=== PATIENT | female | born 1940 | race Caucasian/White ===

== ENCOUNTER 2024-12-09 17:08 | Inpatient (IN) ==
[2024-12-09] MEDS: morphine 2 MG/ML VIAL IV ONE (18:33)
[2024-12-09 19:14] LABS: Basophils # (Auto) 0.01 K/mcL (0.00-0.30); Basophils % (Auto) 0.1 % (0.0-2.0); Eosinophils # (Auto) 0.06 K/mcL (0.00-0.70); Eosinophils % (Auto) 0.8 % (0.0-7.0); Hematocrit 35.4 % (34.1-44.9); Hemoglobin 11.8 g/dL (11.2-15.7); Lymphocytes # (Auto) 1.02 K/mcL (1.50-4.80); Lymphocytes % (Auto) 14.1 % (15.5-49.0); Mean Cell Volume 91.9 fL (80.0-100.0); Mean Corpuscular HGB Conc 33.3 g/dL (31.0-36.0); Mean Platelet Volume 11.5 fL (8.8-12.5); Monocytes # (Auto) 0.43 K/mcL (0.10-0.90); Monocytes % (Auto) 5.9 % (1.0-12.0); Neutrophils % (Auto) 78.4 % (38.0-78.0); Platelet Count 187 K/mcL (140-440); RBC 3.85 M/mcL (3.59-5.38); WBC 7.3 K/mcL (4.5-11.0)
[2024-12-09 19:41] LABS: ALT/SGPT 260 U/L (<40); AST/SGOT 360 U/L (<32); Albumin 3.5 gm/dL (3.2-5.2); Albumin/Globulin Ratio 1.3 (1.0-2.3); Alkaline Phosphatase 80 U/L (39-117); Bilirubin,Total 0.8 mg/dL (0.1-1.0); Blood Urea Nitrogen 13 mg/dL (8-23); Calcium 8.8 mg/dL (8.6-10.4); Carbon Dioxide 36 mmol/L (22-30); Chloride 94 mmol/L (96-108); Globulin 2.6 gm/dL (2.2-3.7); Glomerular Filtration Rate 59; Glucose 115 mg/dL (70-105); Sodium 143 mmol/L (133-145)
[2024-12-09] MEDS: POTASSIUM CHLORIDE 40 MEQ in DEXTROSE 5% IN WATER 500 ML IV ONE (20:03)
[2024-12-09] MEDS: morphine 2 MG/ML VIAL IV PRN (20:08)
[2024-12-09] MEDS: POTASSIUM CHLORIDE 20 MEQ/10 ML VIAL IV ONE (21:48)
[2024-12-09] MEDS ORDERED: hydrALAZINE 20 MG/ML VIAL IV PRN (22:08)
[2024-12-09] MEDS ORDERED: LORazepam 1 MG TABLET PO PRN (22:08)
[2024-12-09] MEDS ORDERED: IPRATROPIUM/ALBUTEROL 3 ML AMPUL.NEB NEB PRN (22:08)
[2024-12-09] MEDS ORDERED: ONDANSETRON 4 MG/2 ML VIAL IV PRN (22:08)
[2024-12-09] MEDS: SENNOSIDES 1 TABLET PO SCH (22:47)
[2024-12-09] MEDS: DOCUSATE SODIUM 100 MG CAPSULE PO SCH (22:47)
[2024-12-09] MEDS: LIDOCAINE 4% TOP PATCH TOPICAL SCH (23:08)
[2024-12-09] MEDS: NACL 0.9% W/KCL 20MEQ 1,000 ML IV SCH (23:09)
[2024-12-09] MEDS: 0.9 % SODIUM CHLORIDE 10 ML SYRINGE IV SCH (23:10)
[2024-12-10] MEDS: HYDROmorphone 1 MG/ML SYRINGE IV PRN (06:39)
[2024-12-10 06:49] LABS: Basophils # (Auto) 0 K/mcL (0.00-0.30); Basophils % (Auto) 0 % (0.0-2.0); Eosinophils # (Auto) 0.02 K/mcL (0.00-0.70); Eosinophils % (Auto) 0.2 % (0.0-7.0); Hematocrit 33.6 % (34.1-44.9); Hemoglobin 11.2 g/dL (11.2-15.7); Lymphocytes # (Auto) 0.48 K/mcL (1.50-4.80); Lymphocytes % (Auto) 5.1 % (15.5-49.0); Mean Cell Volume 92.1 fL (80.0-100.0); Mean Corpuscular HGB Conc 33.3 g/dL (31.0-36.0); Mean Platelet Volume 11.6 fL (8.8-12.5); Monocytes # (Auto) 0.35 K/mcL (0.10-0.90); Monocytes % (Auto) 3.7 % (1.0-12.0); Neutrophils % (Auto) 90.8 % (38.0-78.0); Platelet Count 179 K/mcL (140-440); RBC 3.65 M/mcL (3.59-5.38); Red Cell Distribution Width 14.2 % (11.5-14.5); WBC 9.4 K/mcL (4.5-11.0)
[2024-12-10 07:37] LABS: ALT/SGPT 304 U/L (<40); AST/SGOT 426 U/L (<32); Albumin 3.5 gm/dL (3.2-5.2); Albumin/Globulin Ratio 1.4 (1.0-2.3); Alkaline Phosphatase 75 U/L (39-117); Bilirubin,Total 0.7 mg/dL (0.1-1.0); Blood Urea Nitrogen 14 mg/dL (8-23); Calcium 8.5 mg/dL (8.6-10.4); Carbon Dioxide 34 mmol/L (22-30); Chloride 95 mmol/L (96-108); Globulin 2.5 gm/dL (2.2-3.7); Glomerular Filtration Rate 79; Glucose 118 mg/dL (70-105); Sodium 140 mmol/L (133-145)
[2024-12-10] MEDS: POTASSIUM CHLORIDE 80 MEQ in DEXTROSE 5% IN WATER 1,000 ML IV ONE (09:18)
[2024-12-10 12:01] LABS: Appearance,Urine Turbid (Clear); Bacteria,Urine Many /hpf (0); Bilirubin,Urine Small mg/dL (Negative); Color,Urine Yellow; Glucose,Urine (UA) Negative (Negative); Ketones,Urine Trace mg/dL (Negative); Leukocyte Esterase,Urine Trace /uL (Negative); Mucus,Urine Few /hpf; Nitrate,Urine Negative (Negative); Protein,Urine 100 mg/dL (Negative); Urine Blood Trace-intact ery/mcL (Negative); Urine RBC 0 /hpf (0-3); Urine Squamous Epithelial Cell 0 /hpf (0-4); Urine WBC 2 /hpf (0-4); Urobilinogen,Urine Normal
[2024-12-10] MEDS ORDERED: POTASSIUM CHLORIDE 40 MEQ in DEXTROSE 5% IN WATER 500 ML IV ONE (13:49)
[2024-12-10 13:56] LABS: Hematocrit 34.1 % (34.1-44.9); Hemoglobin 11.1 g/dL (11.2-15.7)
[2024-12-10] MEDS ORDERED: fentaNYL 100 MCG/2 ML VIAL ONE (14:28)
[2024-12-10] MEDS ORDERED: KETAMINE 50 MG/ML Syringe IV ONE (14:28)
[2024-12-10] MEDS ORDERED: DEXAMETHASONE 10 MG/ML VIAL ONE (14:29)
[2024-12-10] MEDS ORDERED: ONDANSETRON 4 MG/2 ML VIAL ONE (14:29)
[2024-12-10] MEDS ORDERED: MAGNESIUM SULFATE 2 GM/50 ML BAG IV PRN (14:29)
[2024-12-10] MEDS ORDERED: TRANEXAMIC ACID 1,000 MG/10 ML VIAL ONE (14:29)
[2024-12-10] MEDS ORDERED: GLYCOPYRROLATE 0.2 MG/ML VIAL IV ONE (14:29)
[2024-12-10] MEDS ORDERED: LIDOCAINE 2% PF 5 ML VIAL ONE (14:29)
[2024-12-10] MEDS ORDERED: PROPOFOL 200 MG/20 ML VIAL IV ONE (14:29)
[2024-12-10] MEDS ORDERED: FAMOTIDINE/PF 20 MG/2 ML VIAL IV ONE (14:32)
[2024-12-10] MEDS ORDERED: 0.9 % SODIUM CHLORIDE 100 ML IV ONE (14:43)
[2024-12-10] MEDS: ceFAZolin 2 GM in DEXTROSE 5% IN WATER 50 ML IV SCH (15:14)
[2024-12-10] MEDS: POTASSIUM CHLORIDE 40 MEQ in DEXTROSE 5% IN WATER 500 ML IV ONE (15:30)
[2024-12-10] MEDS ORDERED: NALOXONE HCL 0.4 MG/ML VIAL IV PRN (15:54)
[2024-12-10] MEDS ORDERED: fentaNYL 100 MCG/2 ML VIAL IV PRN (15:54)
[2024-12-10] MEDS ORDERED: ONDANSETRON 4 MG/2 ML VIAL IV PRN (15:54)
[2024-12-10] MEDS ORDERED: IPRATROPIUM/ALBUTEROL 3 ML AMPUL.NEB NEB PRN (15:54)
[2024-12-10] MEDS ORDERED: LACTATED RINGERS 250 ML IV PRN (15:54)
[2024-12-10] MEDS ORDERED: BENZOCAINE/MENTHOL 1 LOZENGE PO PRN ×2 (15:54→16:28)
[2024-12-10] MEDS ORDERED: HYDROmorphone 0.5 MG/0.5 ML SYRINGE IV PRN (15:54)
[2024-12-10] MEDS ORDERED: FLEETS ADULT 1 DOSE ENEMA PR PRN (16:28)
[2024-12-10] MEDS ORDERED: POLYETHYLENE GLYCOL 3350 17 GM PACKET PO PRN (16:28)
[2024-12-10] MEDS: ACETAMINOPHEN 1,000 MG/100 ML BAG IV ONE (16:58)
[2024-12-10] MEDS: METHOCARBAMOL 1,000 MG/10 ML VIAL IV PRN (17:41)
[2024-12-10] MEDS ORDERED: SUGAMMADEX SODIUM 200 MG/2 ML VIAL IV ONE (18:21)
[2024-12-10] MEDS: POTASSIUM CHLORIDE 20 MEQ TABLET PO ONE (18:26)
[2024-12-10] MEDS: 0.45 % SODIUM CHLORIDE 1,000 ML IV SCH (20:20)
[2024-12-10] MEDS: DOCUSATE SODIUM 100 MG CAPSULE PO SCH (20:24)
[2024-12-10] MEDS: GABAPENTIN 100 MG CAPSULE PO SCH (20:24)
[2024-12-10] MEDS: ATORVASTATIN 40 MG TABLET PO SCH (20:24)
[2024-12-10] MEDS: LORazepam 1 MG TABLET PO PRN (20:37)
[2024-12-10] MEDS: ceFAZolin 1 GM VIAL IV SCH (22:59)
[2024-12-10] MEDS: LACTATED RINGERS 1,000 ML IV SCH (23:15)
[2024-12-11] MEDS: oxyCODONE IR 5 MG TABLET PO PRN (04:41)
[2024-12-11 05:50] LABS: ALT/SGPT 38 U/L (<40); AST/SGOT 53 U/L (<32); Albumin 2.6 gm/dL (3.2-5.2); Alkaline Phosphatase 94 U/L (39-117); Bilirubin,Direct < 0.2 mg/dL (0-0.3); Bilirubin,Total 0.3 mg/dL (0.1-1.0); Blood Urea Nitrogen 4 mg/dL (8-23); Calcium 7.9 mg/dL (8.6-10.4); Carbon Dioxide 21 mmol/L (22-30); Chloride 103 mmol/L (96-108); Globulin 2.7 gm/dL (2.2-3.7); Glomerular Filtration Rate 68; Glucose 99 mg/dL (70-105); Lactate Dehydrogenase 161 U/L (135-225); Phosphorous 3.7 mg/dL (2.5-4.5); Potassium 3.3 mmol/L (3.3-5.1); Sodium 133 mmol/L (133-145); Triglycerides 52 mg/dL (<150); Uric Acid 2.5 mg/dL (2.5-8.0)
[2024-12-11 06:09] LABS: Hematocrit 31.4 % (34.1-44.9)
[2024-12-11] MEDS: CITALOPRAM 20 MG TABLET PO SCH (08:32)
[2024-12-11] MEDS: ASPIRIN 81 MG TAB.CHEW PO SCH (08:32)
[2024-12-11] MEDS: cefTRIAXone 1 GM VIAL IV SCH (10:13)
[2024-12-11] MEDS: TOLTERODINE 2 MG CAP.XL.24H PO SCH (10:13)
[2024-12-11] MEDS: LATANOPROST OPHTH DROPS 2.5ML BOTTLE OU SCH (10:46)
[2024-12-11] MEDS: POTASSIUM CHLORIDE 20 MEQ TABLET PO PRN (16:40)
[2024-12-11] MEDS: ACETAMINOPHEN 325 MG TABLET PO PRN (18:48)
[2024-12-12 05:41] LABS: Hematocrit 27.6 % (34.1-44.9)
[2024-12-12 06:03] LABS: ALT/SGPT 108 U/L (<40); AST/SGOT 190 U/L (<32); Albumin 3.2 gm/dL (3.2-5.2); Albumin/Globulin Ratio 1.6 (1.0-2.3); Alkaline Phosphatase 61 U/L (39-117); Bilirubin,Direct 0.3 mg/dL (<0.3); Bilirubin,Total 0.5 mg/dL (0.1-1.0); Blood Urea Nitrogen 15 mg/dL (8-23); Calcium 8.5 mg/dL (8.6-10.4); Carbon Dioxide 30 mmol/L (22-30); Chloride 102 mmol/L (96-108); Glomerular Filtration Rate 68; Glucose 102 mg/dL (70-105); Lactate Dehydrogenase 303 U/L (135-225); Phosphorous 1.9 mg/dL (2.5-4.5); Sodium 140 mmol/L (133-145); Triglycerides 67 mg/dL (<150)
[2024-12-12] MEDS: NEUTRA PHOS 1 PACKET PO SCH (08:17)
[2024-12-12] MEDS: PHOSPHORUS 250 MG TABLET PO SCH (08:19)
[2024-12-12] MEDS: POTASSIUM CHLORIDE 20 MEQ TABLET PO PRN (08:19)
[2024-12-12] MEDS: FUROSEMIDE 20 MG/2 ML VIAL IV ONE (10:37)
[2024-12-12 14:35] LABS: Potassium 3.4 mmol/L (3.3-5.1)
[2024-12-12] MEDS: POTASSIUM CHLORIDE 20 MEQ TABLET PO SCH (16:44)
[2024-12-12] MEDS: ASPIRIN 81 MG TAB.CHEW CHEWED SCH (20:28)
[2024-12-13 06:22] LABS: Hematocrit 30.2 % (34.1-44.9); Hemoglobin 9.8 g/dL (11.2-15.7)
[2024-12-13 07:01] LABS: ALT/SGPT 76 U/L (<40); AST/SGOT 127 U/L (<32); Albumin 3.2 gm/dL (3.2-5.2); Albumin/Globulin Ratio 1.3 (1.0-2.3); Alkaline Phosphatase 87 U/L (39-117); Bilirubin,Direct 0.5 mg/dL (<0.3); Blood Urea Nitrogen 12 mg/dL (8-23); Calcium 8.5 mg/dL (8.6-10.4); Carbon Dioxide 32 mmol/L (22-30); Chloride 97 mmol/L (96-108); Globulin 2.5 gm/dL (2.2-3.7); Glomerular Filtration Rate 84; Glucose 109 mg/dL (70-105); Lactate Dehydrogenase 371 U/L (135-225); Phosphorous 2.4 mg/dL (2.5-4.5); Potassium 2.8 mmol/L (3.3-5.1); Sodium 140 mmol/L (133-145); Triglycerides 84 mg/dL (<150); Uric Acid 2.3 mg/dL (2.5-8.0)
[2024-12-13] MEDS: POTASSIUM CHLORIDE 40 MEQ in DEXTROSE 5% IN WATER 500 ML IV PRN (08:45)
[2024-12-13 11:08] VITALS: O2SAT 98
[2024-12-13 16:43] VITALS: TEMP 98.1
== END 2024-12-13 12:54 | DRG 521 ==
LOC: ED 17:08 → MEDSUR 22:00 → ICU 12-10 19:25 → MEDSUR 12-12 18:15
PROVIDERS: ADMIT Internal Medicine; ATTEND Internal Medicine
PROC: HEMIHIP (2024-12-10 15:32)